=== PATIENT | male | born 2000 | race Caucasian/White ===

== ENCOUNTER 2024-09-26 15:46 | Emergency (ER) | payer SELFPAY ==
[2024-09-26 15:46] VITALS: BP 123/96; PULSE 92; RESP 16; TEMP 36.6; O2SAT 95; BMI 24.3
--- NOTE | 2024-09-26 15:56 | XRR_ITS ---
PROCEDURE INFORMATION: Exam: XR Right Foot Exam date and time: 09/26/2024 4:04 PM Age: 24 years old Clinical indication: Injury or trauma; Other: Dropped something on RT foot; Blunt trauma; Right TECHNIQUE: Imaging protocol: Radiologic exam of the right foot. Views: 3 or more views. COMPARISON: No relevant prior studies available. FINDINGS: Bones/joints: Normal. Soft tissues: Normal. XR/XR foot RT min 3V* [id number] IMPRESSION: No acute findings.
--- NOTE | 2024-09-26 16:07 | ED_ITS ---
HPI - Extremity Problem General: Chief complaint: Extremity Injury, Lower Stated complaint: Pain in foot Time Seen by Provider: 09/26/24 15:46 History of Present Illness: 24-year-old [facility] complaints of right foot pain. 2 days ago he dropped a toilet on his right foot refers pain over the distal second and third metatarsals. He has been ambulatory in the foot no other injury Related Data Home Medications Medication Instructions Recorded Confirmed No Known Home Medications 09/26/24 09/26/24 Allergies Allergy/AdvReac Type Severity Reaction Status Date / Time No Known Allergies Allergy Unverified 09/26/24 16:09 Physical Exam Extremity: OTHER: Examination of the right foot there is no evidence of deformity no bruising no laceration. Dorsalis pedis posterior tibialis pulse intact and normal. His foot is quite soiled he states he has not been wearing his shoe since he dropped the toilet on it. Course Vital Signs: Vital signs: Vital Signs Temperature 97.8 F 09/26/24 15:46 Pulse Rate 85 09/26/24 16:35 Respiratory Rate 16 09/26/24 15:46 Blood Pressure 125/91 09/26/24 16:35 Pulse Oximetry 98 09/26/24 16:35 Oxygen Delivery Me thod Room Air 09/26/24 15:46 MDM - Extremity (Nontraumatic) Medical Decision Making No acute fractures [id number] anti-inflammatories as needed. Recommend against Tylenol. Patient is highly intoxicated at this time should probably not use Tylenol. He can use ice elevate stiff soled shoe follow-up as needed Lab Data Radiology Impressions Foot X-Ray 09/26/24 15:56 IMPRESSION: No acute findings. All radiology interpretation(s) finalized by discharge Discharge Plan Discharge Patient Disposition: Home Clinical Impression: Crush injury of right foot Condition: Stable Prescriptions: No Action No Known Home Medications Discharge Orders: Discharge ED (Routine); Ordered 09/26/24 Ordered By: Guevara Jiang Patient Instructions: Opioid Safety, Pain Management Activity Restrictions/Additional Instructions: Thank you for choosing [facility] for your healthcare needs today. It is very important that you follow up as instructed or that you return to the Emergency Department should you have concerns or if your condition changes or worsens in any way. You are seen today for foot pain there is no acute fractures on the x-rays. Recommend [id number] ibuprofen as needed ice and elevate. Coding Level of Care Code ED Sieve Maker for Vinicio Meza
--- NOTE | 2024-09-26 16:10 | PC.PHAR ---
Pt states takes nothing but over the counter allergy medication. I was not successful in finding out which one.
[2024-09-26 16:35] VITALS: BP 125/91; PULSE 85; O2SAT 98
== END 2024-09-26 16:37 | disposition home or self-care (01) ==
PROVIDERS: Emergency Provider Family Medicine
DX: S97.81XA Crushing injury of right foot, initial encounter (principal); X58.XXXA Exposure to other specified factors, initial encounter
CPT/HCPCS: 73630; 99283

== ENCOUNTER 2024-10-29 19:39 | Emergency (ER) | payer SELFPAY ==
[2024-10-29 19:43] VITALS: BP 138/84; PULSE 85; RESP 18; TEMP 36.8; O2SAT 97; BMI 22.8
[2024-10-29 21:12] LABS: SARS Covid-2 Antigen negative (Negative)
--- NOTE | 2024-10-29 21:13 | W.ED.URI ---
HPI - URI/Sore Throat General: Chief Complaint: Upper Respiratory Infection Stated Complaint: FEVER Time Seen by Provider: 10/29/24 20:16 History of Present Illness: 24-year-old male patient here with fever, chills, nausea, diarrhea, loss of taste, and some congestion. No sore throat. Mild cough. He has had the symptoms 36 hours he says. They seem to be worse now. He has a girlfriend with spina bifida, and wanted to prevent her from getting sick if he could be treated. Related Data Previous Rx's Medication Instructions Recorded ondansetron 4 mg disintegrating 4 mg PO Q6H PRN nausea and 10/29/24 tablet vomiting #14 tabs Allergies Allergy/AdvReac Type Severity Reaction Status Date / Time No Known Allergies Allergy Unverified 09/26/24 16:09 Physical Exam Const: COMMON NORMALS: no acute distress GENERAL APPEARANCE: cooperative; not ill appearing and not frail appearing HENMT: COMMON NORMALS: normocephalic, atraumatic and Normal external nose present HEAD & SCALP: normocephalic and atraumatic FACE & SINUS: normal facial exam and face symmetric NOSE: Normal external nose present Eye: COMMON NORMALS: Equal, round and reactive pupils present and EOMs intact bilaterally PUPIL: Yes Equal, round and reactive pupils present Neck/C-Spine: GENERAL: Yes trachea midline Chest: CHEST: Yes Symmetrical chest wall rise Resp: COMMON NORMALS: normal respiratory effort, No retractions, No use of accessory muscles and clear to auscultation bilaterally AUSCULTATION: clear to auscultation bilaterally Cardio: COMMON NORMALS: regular rate and regular rhythm RATE: regular rate RHYTHM: regular rhythm GI: COMMON NORMALS: Normal to inspection, nondistended, normoactive bowel sounds present Extremity: COMMON NORMALS: no pedal edema Neuro: MIKE COMA SCALE: document GCS findings [place] coma scale eye opening: Spontaneous [place] coma scale verbal response: Orientated Mike coma scale motor response: Obey commands Mike coma scale total score: 15 SENSORY EXAM: Yes extremities (intact) Psych: COMMON NORMALS: speech normal SPEECH: Yes normal speech Skin: COMMON NORMALS: no rashes or lesions noted GENERAL SKIN EXAM: no rashes or lesions noted Course Vital Signs: Vital signs: Vital Signs Temperature 98.2 F 10/29/24 19:43 Pulse Rate 85 10/29/24 19:43 Respiratory Rate 18 10/29/24 19:43 Blood Pressure 138/84 10/29/24 19:43 Pulse Oximetry 97 10/29/24 19:43 Oxygen Delivery Me thod Room Air 10/29/24 19:43 MDM - URI/Sore Throat Medical Decision Making COVID swab negative. Awaiting flu antigen. Flu negative as well. This is likely viral gastroenteritis. To be treated symptomatically. He will be discharged home. Lab Data Laboratory Results Coronavirus (PCR) Cancelled 10/29/24 20:13 Influenza A (PCR) Cancelled 10/29/24 20:13 Influenza Type A Ag Negative (Negative) 10/29/24 20:38 Influenza Type B Ag Negative (Negative) 10/29/24 20:38 Influenza Type B (PCR) Cancelled 10/29/24 20:13 RSV (PCR) Cancelled 10/29/24 20:13 SARS-CoV-2 Ag (Rapid) negative (Negative) 10/29/24 20:38 No radiology studies performed this visit Discharge Plan Discharge Patient Disposition: Home Clinical Impression: Gastroenteritis Condition: Stable Prescriptions: New ondansetron 4 mg tablet,disintegrating 4 mg PO Q6H PRN (Reason: nausea and vomiting) Qty: 14 0RF Discharge Orders: Discharge ED (Routine); Ordered 10/29/24 Ordered By: Prasanna Agrawal Patient Instructions: Gastroenteritis (ED), Opioid Safety, Pain Management Activity Restrictions/Additional Instructions: Follow a liquid diet for the next 24 hours. Take nausea medication as needed. Watch for fever and control temperature. Drink plenty of clear liquids. Return for problems. Your swabs were negative for COVID and influenza in the ER. Coding Level of Care Code ED Cinder Worker for Vinicio Meza
[2024-10-29 21:37] LABS: Influenza A by IFA Negative (Negative); Influenza B by IFA Negative (Negative)
[2024-10-29 21:57] VITALS: BP 234/85; PULSE 83; O2SAT 98
== END 2024-10-29 21:58 | disposition home or self-care (01) ==
PROVIDERS: Emergency Provider Emergency Medicine
DX: K52.9 Noninfective gastroenteritis and colitis, unspecified (principal); Z11.52 Encounter for screening for COVID-19
CPT/HCPCS: 87426; 87804; 99283